=== PATIENT | female | born 2000 | race African-American/Black ===

== ENCOUNTER 2021-11-22 17:22 | Emergency (ER) | payer BC, SELFPAY ==
--- NOTE | ~2021-11-22 | XR_ITS ---
EXAMINATION: XR chest 2V DATE: 11/22/2021 17:46 INDICATION: Chest pain TECHNIQUE: PA and lateral views of the chest are obtained. COMPARISON: None available FINDINGS: The lungs are free of acute opacities. No pleural effusion or pneumothorax. The cardiomedia stinal silhouette is normal. The visualized bones and soft tissues are unremarkable. IMPRESSION: 1. No acute cardiopulmonary abnormality. Reviewed, dictated and finalized at location B.
--- NOTE | ~2021-11-22 | CT_ITS ---
EXAMINATION: CT abdomen pelvis w con DATE: 11/22/2021 19:04 INDICATION: Elevated lipase TECHNIQUE: Computed tomography (CT) of the abdomen and pelvis was performed with 100 mL Omnipaque-350 intravenous contrast. Automated exposure control and iterative reconstruction technique were employe d. The dose-length product was 255.09 mGy-cm. COMPARISON: None FINDINGS: Patchy groundglass opacities in the medial right middle lobe which could be due to atelectasis or pne umonia. Heart size is normal. No pericardial or pleural effusion. 5 mm right hepatic lobe cyst. The g allbladder, spleen, pancreas, bilateral adrenal glands and kidneys are normal. Bowels including the a ppendix are normal. Bladder, retroverted uterus and bilateral adnexa are unremarkable. No free intrap eritoneal gas or fluid. No pathologically enlarged abdominal or pelvic lymphadenopathy. Bones are unr emarkable. IMPRESSION: 1. No acute intra-abdominal/pelvic process. No peripancreatic inflammatory stranding to suggest acute pancreatitis. 2. Patchy groundglass opacities in the right middle lobe which could be due to atelectasis or pneumon ia. Reviewed, dictated and finalized at location A. IMPRESSION: 1. No acute intra-abdominal/pelvic process. No peripancreatic inflammatory stra nding to suggest acute pancreatitis. 2. Patchy groundglass opacities in the right middle lobe which could be due to atelectasis or pneumonia.
--- NOTE | 2021-11-22 17:24 | ECG_ITS ---
Measurements Intervals [place] Rate: 99 P: [place]: 0 QRS: 79 QRSD: 90 T: -14 QT: 309 QTc: 398 Interpretive Statements SINUS RHYTHM WITH PACS NONSPECIFIC ST & T-WAVE ABNORMALITY NO PREVIOUS ECG AVAILABLE FOR COMPARISON Electronically Signed On 11-23-2021 12:41:13 CDT by Scot Silveira M.D.
[2021-11-22 17:25] VITALS: BP 143/90; PULSE 100; RESP 18; TEMP 36.9; O2SAT 100
[2021-11-22 17:36] VITALS: PULSE 103
[2021-11-22] MEDS: KETOROLAC (*BKC) 60 MG/2 ML VIAL IM (17:57)
[2021-11-22 18:01] VITALS: BP 129/94
[2021-11-22 18:03] LABS: Troponin I < 0.012 ng/mL (0.000-0.034)
--- NOTE | 2021-11-22 18:09 | ED.CHESTPAIN ---
HPI - Chest Pain General Chief Complaint: Chest Pain Stated Complaint: SHARP CHEST PAIN Time Seen by Provider: 11/22/21 17:27 History of Present Illness HPI narrative: 21-year-old female presents the emergency room for evaluation of chest pain that has been present since yesterday. Patient states she is recently had a nonproductive cough. Describes pain as a sharp and burning sensation that is worse after inspiration. Denies any shortness of breath difficulty breathing, palpitations or edema. Denies radiating pain. Denies injury or trauma. Denies fever Related Data Allergies Allergy/AdvReac Type Severity Reaction Status Date / Time No Known Allergies Allergy Verified 11/22/21 17:27 Review of Systems Review of Systems: CONSTITUTIONAL: Denies fever, chills, or sweats. EYES: Denies visual changes, redness, or discharge. ENT: Denies rhinorrhea, congestion, sore throat, or otalgia. CARDIOVASCULAR: Reports chest pain, denies palpitations and edema. RESPIRATORY: Denies cough or dyspnea. GASTROINTESTINAL: Denies abdominal pain, nausea, vomiting, or diarrhea. GENITOURINARY: Denies dysuria or hematuria. SKIN: Denies rash or itching. MUSCULOSKELETAL: Denies back pain, joint pain, or myalgia. NEUROLOGIC: Denies headache, numbness, dizziness, or weakness. PSYCHIATRIC: Denies anxiety or depression. Exam Narrative: GENERAL: Well-appearing, well-nourished, no physical limitations, and in no acute distress. HEAD: Normocephalic, atraumatic. EYES: Conjunctivae normal, PERRLA and EOMI. NECK: Supple. No carotid bruits or JVD CHEST: Clear to auscultation. No respiratory distress. No wheezes rales or rhonchi. No tenderness. HEART: Regular rate and rhythm. No murmur heard. Normal peripheral pulses. ABDOMEN: Soft, nontender, nondistended, normal active bowel sounds. EXTREMITIES: Normal range of motion. No edema. No clubbing or cyanosis SKIN: Warm, dry, no rash. No noted wounds NEURO: No focal deficits. Alert and oriented x3. MAEW. CN's II-XI intact bilaterally, normal gait PSYCH: Cooperative. Normal mood and affect. Course Vital Signs Vital signs: Vital Signs Temperature 36.9 C 11/22/21 17:25 Pulse Rate 100 11/22/21 17:25 Respiratory Rate 18 08/25/22 17:25 Blood Pressure 143/90 H 11/22/21 17:25 Pulse Oximetry 100 11/22/21 17:25 Temperature 36.9 C 11/22/21 17:25 Pulse Rate 103 H 11/22/21 17:36 Respiratory Rate 18 11/22/21 17:25 Blood Pressure 143/90 H 11/22/21 17:25 Pulse Oximetry 100 11/22/21 17:25 MDM - Chest Pain Lab Data Result diagrams: 11/22/21 18:46 11/22/21 18:58 Labs: Lab Results 11/22/21 11/22/21 11/22/21 Range/Units 17:35 17:36 17:36 WBC (4.5-10.0) K/mm3 RBC (4.2-5.4) M/mm3 Hgb (12.0-15.0) g/dL Hct (37.0-47.0) % MCV (80-100) fl MCH (26-34) pg MCHC (32-36) g/dl RDW (11.5-14.5) % Plt Count (150-375) k/mm3 MPV (7.4-10.4) fl Immature Gran % (Auto) (0-0.5) % Neut % (Auto) (45.5-73.1) % Lymph % (Auto) (18.3-44.2) % [place] % (Auto) (2.6-8.5) % Eos % (Auto) (0-4.4) % Baso % (Auto) (0.2-1.2) % Lymph # (Auto) (0.9-3.2) K/mm3 [place] # (Auto) (0.1-0.6) K/mm3 Eos # (Auto) (0-0.3) K/mm3 Baso # (Auto) (0.0-0.1) K/mm3 Abs Immat Gran (auto) (0.00-0.031) K/mm3 Absolute Neuts (auto) (1.3-6.7) K/mm3 Absolute Nucleated RBC (0.0-0.012) K/mm3 Nucleated RBC % (0.0-0.2) % Sodium 137 (137-145) mmol/L Potassium 4.1 (3.4-5.0) mmol/L Chloride 101 (98-107) mmol/L Carbon Dioxide 24 (22-30) mmol/L Anion Gap 12 (8-16) mmol/L BUN 9 (7-17) mg/dL Creatinine 0.80 (0.7-1.0) mg/dL Estim Creat Clear Calc 87 ml/min Estimated GFR > 60 (59 - ) Glucose 92 (65-110) mg/dL Calcium 9.3 (8.4-10.2) mg/dL Total Bilirubin 0.5 (0.2-1.3) mg/dL AST 31 (14-36) U/L ALT 16 (6-35) U/L Alkaline Phosphatase 67
[2021-11-22 18:31] LABS: Lipase 579 U/L (23-300)
[2021-11-22] MEDS: SODIUM CHLORIDE 0.9% IV 1,000 ML 999 ML IV CONT (18:45)
[2021-11-22 18:53] LABS: Appearance Urine Clear (Clear); Bilirubin Urine 1+ (Negative); Blood Urine 2+ (Negative); Color Urine Yellow (Yellow); Glucose Urine UA Negative (Negative); Ketones Urine 2+ mg/dL (Negative); Leukocyte Esterase Ur Negative LEU/UL (Negative); Nitrate Urine Negative (Negative); Protein Urine Negative (Negative); Specific Grav Ur 1.025 (1.001-1.035); Urobilinogen Urine 0.2 mg/dL (<2.0); pH Urine 5.5 (5.0-9.0)
[2021-11-22 18:54] LABS: Basophils Absolute Auto 0.1 K/mm3 (0.0-0.1); Basophils Percent Auto 0.6 % (0.2-1.2); Eosinophils Absolute Auto 0.7 K/mm3 (0-0.3); Eosinophils Percent Auto 4.4 % (0-4.4); Hematocrit 42.1 % (37.0-47.0); Hemoglobin 14.6 g/dL (12.0-15.0); Immature Granulocyte Absolute 0.06 K/mm3 (0.00-0.031); Immature Granulocyte Percent A 0.4 % (0-0.5); Lymphocytes Percent Auto 19.6 % (18.3-44.2); Mean Corpuscular HGB Conc 34.7 g/dl (32-36); Mean Corpuscular Hemoglobin 32.3 pg (26-34); Mean Corpuscular Volume 93.1 fl (80-100); Mean Platelet Volume 8.6 fl (7.4-10.4); Monocytes Absolute Auto 1.1 K/mm3 (0.1-0.6); Neutrophils Absolute Auto 10.8 K/mm3 (1.3-6.7); Platelet Count Result 378 k/mm3 (150-375); Red Blood Count 4.52 M/mm3 (4.2-5.4); Red Cell Distribution Width 11.8 % (11.5-14.5); White Blood Count 15.8 K/mm3 (4.5-10.0)
[2021-11-22 18:55] LABS: Add Urine Microscopic? NO; Bacteria Urine Trace /hpf; Mucus Urine Few /lpf; Squamous Epithelial Cell Urine Moderate /hpf (Few)
[2021-11-22 19:00] LABS: Estimated CRCL calculation 87 ml/min; Estimated Glomerular Filt Rate > 60
[2021-11-22 19:06] VITALS: O2SAT 98
[2021-11-22 19:14] LABS: Alanine Aminotransferase 16 U/L (6-35); Alkaline Phosphatase 67 U/L (38-126); Anion Gap 12 mmol/L (8-16); Aspartate Amino Transferase 31 U/L (14-36); Bilirubin,Total 0.5 mg/dL (0.2-1.3); Blood Urea Nitrogen 9 mg/dL (7-17); Calcium 9.3 mg/dL (8.4-10.2); Carbon Dioxide 24 mmol/L (22-30); Chloride 101 mmol/L (98-107); Estimated CRCL calculation 87 ml/min; Estimated Glomerular Filt Rate > 60; Glucose 92 mg/dL (65-110); Potassium 4.1 mmol/L (3.4-5.0); Sodium 137 mmol/L (137-145)
[2021-11-22 19:15] VITALS: BP 132/86; PULSE 98; RESP 14; O2SAT 100
[2021-11-22 19:20] LABS: SARS-CoV-2 RNA PCR Negative
== END 2021-11-22 19:54 | disposition home or self-care (01) ==
PROVIDERS: Emergency Provider Nurse Practitioner Family
DX: J18.9 Pneumonia, unspecified organism (principal); R09.1 Pleurisy; R74.8 Abnormal levels of other serum enzymes; Z20.822 Contact with and (suspected) exposure to COVID-19; R94.31 Abnormal electrocardiogram [ECG] [EKG]
CPT/HCPCS: 36415; 71046; 74177; 80053; 81003; 81025; 83690; 84484; 85025; 93005; 96360; 96372; 99284; C9803; J1885; J7030; Q9967; U0003; U0005

== ENCOUNTER 2021-12-16 09:30 | Emergency (ER) | payer BC, SELFPAY ==
--- NOTE | ~2021-12-16 | XR_ITS ---
EXAMINATION: XR chest 2V DATE: 12/16/2021 10:12 INDICATION: Left chest pain. Cough. TECHNIQUE: Frontal and lateral views of the chest were obtained. COMPARISON: Chest 2 views 11/22/2021, CT abdomen and pelvis 11/22/2021 FINDINGS: The chest demonstrates clear lungs without pneumonia, pleural effusion, or pneumothorax. Th e heart size is normal. IMPRESSION: 1. No acute cardiopulmonary disease. Reviewed, dictated and finalized at location A.
--- NOTE | 2021-12-16 09:34 | ECG_ITS ---
Measurements Intervals [place] Rate: 115 P: [place]: 0 QRS: 98 QRSD: 110 T: -42 QT: 330 QTc: 458 Interpretive Statements SINUS TACHYCARDIA WITH SINUS ARRHYTHMIA WITH SHORT WI INTERVAL RIGHT AXIS DEVIATION MINIMAL Q WAVES- INFERIOR LEADS BORDERLINE ST-T WAVE ABNORMALITY- INFERIOR LEADS ABNORMAL ECG COMPARED TO ECG 11/22/2021 17:35:55 HEART RATE HAS INCREASED Electronically Signed On 12-16-2021 21:36:23 CDT by Lucas Mahoney D.O.
[2021-12-16 09:37] VITALS: BP 152/95; PULSE 125; RESP 28; TEMP 36.5; O2SAT 97
--- NOTE | 2021-12-16 09:48 | ED.CHESTPAIN ---
HPI - Chest Pain General Chief Complaint: Chest Pain <CAMELIA Abraham Last Filed: 12/16/21 18:14> Stated Complaint: chest pain, sob <CAMELIA Abraham Last Filed: 12/16/21 18:14> Time Seen by Provider: 12/16/21 09:37 <CAMELIA Abraham Last Filed: 12/16/21 18:14> Source: patient and old records reviewed <CAMELIA Abraham Last Filed: 12/16/21 18:14> Mode of arrival: ambulatory <CAMELIA Abraham Last Filed: 12/16/21 18:14> Limitations: no limitations <CAMELIA Abraham Last Filed: 12/16/21 18:14> History of Present Illness HPI narrative: Patient is a 21-year-old female who presents the ED with report of chest pain and difficulty breathing. Per patient's records, she was seen in the ED on 11/22 for cough and chest pain and diagnosed with R sided PNA at that time. She was started on Doxycycline and has since finished the antibiotic course. Over the last 3 days, she reports having increased difficulty breathing, worse with any type of exertion, constant midsternal chest pain, dry cough, and wheezing. She denies history of asthma or previous breathing issues prior to her pneumonia Dx. She has had some diarrhea since taking the antibiotics, but denies fever, nausea, vomiting, abdominal pain. <CAMELIA Abraham Last Filed: 12/16/21 18:14> Related Data Allergies/Adverse Reactions: Allergies Allergy/AdvReac Type Severity Reaction Status Date / Time No Known Allergies Allergy Verified 12/16/21 09:42 <CAMELIA Abraham Last Filed: 12/16/21 18:14> Review of Systems Review of Systems: CONSTITUTIONAL: Denies fever, chills, or sweats. ENT: Denies rhinorrhea, congestion, sore throat. CARDIOVASCULAR: Reports midsternal chest pain. Denies palpitations or edema. RESPIRATORY: Reports dry cough and dyspnea. GASTROINTESTINAL: Reports diarrhea. Denies abdominal pain, nausea, vomiting. GENITOURINARY: Denies dysuria or hematuria. <Josefa Richmond PA-C - Last Filed: 12/16/21 18:14> All systems reviewed & are unremarkable except as noted in HPI and below <Josefa Richmond PA-C - Last Filed: 12/16/21 18:14> PMFSH Past Medical History Medical History: Medical History (Updated 12/16/21 @ 12:29 by Josefa Richmond PA-C) History of pneumonia <Josefa Richmond PA-C - Last Filed: 12/16/21 18:14> Surgical History Surgical History: Surgical History (Updated 12/16/21 @ 10:03 by Josefa Richmond PA-C) History of ankle surgery History of tonsillectomy <Josefa Richomnd PA-C - Last Filed: 12/16/21 18:14> Social History Social History: Social History (Updated 12/16/21 @ 10:03 by Josefa Richmond PA-C) Smoking status: Current some day smoker <Josefa Richmond PA-C - Last Filed: 12/16/21 18:14> Exam Narrative: GENERAL: Well appearing, well-nourished, non-toxic, in no acute distress. HEAD: Normocephalic, atraumatic. NECK: Supple. No adenopathy, no masses. RESPIRATORY: Airway patent, respirations mildly tachypneic. Coarse breath sounds and bilateral lower lobes, right greater than left. Occasional expiratory wheezing. CARDIOVASCULAR: Tachycardia with regular rhythm without murmurs, rubs, or gallops. Peripheral pulses 2+ and equal bilaterally. ABDOMINAL: Soft, nontender, nondistended, no hepatosplenomegaly. Normoactive BS. MUSCULOSKELETAL: Moves all extremities. Strength/ROM intact without gross deformities or TTP. No edema. No calf tenderness. SKIN: Warm, dry, normal color. No rashes. NEURO: A&O X3. Speech clear. Cranial nerves II-XII grossly intact. Steady gait. No ataxic movements. PSYCHIATRIC: Appropriate mood and affect. Normal interaction. <Josefa Richmond PA-C - Last Filed: 12/16/21 18:14> Course Vital Signs Vital signs: Vital Signs Temperature 97.7 F 12/16/21 09:37 Pulse Rate 125 H 12/16/21 09:37 Respiratory Rate 28 H 09
[2021-12-16 10:01] LABS: Basophils Absolute Auto 0.1 K/mm3 (0.0-0.1); Eosinophils Absolute Auto 0.7 K/mm3 (0-0.3); Eosinophils Percent Auto 8.4 % (0-4.4); Hematocrit 39.7 % (37.0-47.0); Immature Granulocyte Absolute 0.01 K/mm3 (0.00-0.031); Immature Granulocyte Percent A 0.1 % (0-0.5); Lymphocytes Absolute Auto 2.84 K/mm3 (0.9-3.2); Lymphocytes Percent Auto 35.5 % (18.3-44.2); Mean Corpuscular HGB Conc 35.3 g/dl (32-36); Mean Corpuscular Volume 90.6 fl (80-100); Mean Platelet Volume 8.6 fl (7.4-10.4); Monocytes Absolute Auto 0.9 K/mm3 (0.1-0.6); Monocytes Percent Auto 10.9 % (2.6-8.5); Neutrophils Absolute Auto 3.5 K/mm3 (1.3-6.7); Neutrophils Percent Auto 44.1 % (45.5-73.1); Platelet Count Result 388 k/mm3 (150-375); Red Blood Count 4.38 M/mm3 (4.2-5.4); Red Cell Distribution Width 11.7 % (11.5-14.5)
[2021-12-16 10:12] VITALS: PULSE 124
[2021-12-16 10:14] LABS: Alanine Aminotransferase 21 U/L (6-35); Alkaline Phosphatase 65 U/L (38-126); Anion Gap 14 mmol/L (8-16); Aspartate Amino Transferase 37 U/L (14-36); Bilirubin,Total 0.8 mg/dL (0.2-1.3); Blood Urea Nitrogen 6 mg/dL (7-17); Calcium 9.6 mg/dL (8.4-10.2); Carbon Dioxide 23 mmol/L (22-30); Chloride 101 mmol/L (98-107); Estimated CRCL calculation 86 ml/min; Estimated Glomerular Filt Rate > 60; Glucose 107 mg/dL (65-110); Lipase 42 U/L (23-300); Potassium 4.2 mmol/L (3.4-5.0); Sodium 138 mmol/L (137-145)
[2021-12-16 10:26] LABS: INR 1.1; Prothrombin Time 13.8 Seconds (11.1-14.7); Troponin I < 0.012 ng/mL (0.000-0.034)
[2021-12-16 10:30] LABS: Partial Thromboplastin Time 33.5 SECONDS (22.3-36.8)
[2021-12-16] MEDS: methylPREDNISolone SOD SUCC 125 MG VIAL IV PUSH (10:30)
[2021-12-16 11:01] VITALS: BP 121/103; PULSE 106; RESP 22; O2SAT 100
[2021-12-16 12:01] VITALS: BP 141/105; PULSE 116; RESP 20; O2SAT 99
[2021-12-16 12:40] VITALS: BP 135/87; PULSE 118; RESP 21; O2SAT 100
[2021-12-16 13:02] LABS: Troponin I < 0.012 ng/mL (0.000-0.034)
== END 2021-12-16 12:45 | disposition home or self-care (01) ==
PROVIDERS: Emergency Provider General Practice
DX: J40 Bronchitis, not specified as acute or chronic (principal); R06.2 Wheezing; Z87.01 Personal history of pneumonia (recurrent); F17.200 Nicotine dependence, unspecified, uncomplicated; R00.0 Tachycardia, unspecified; R94.31 Abnormal electrocardiogram [ECG] [EKG]
CPT/HCPCS: 36415; 71046; 80053; 83690; 84484; 85025; 85380; 85610; 85730; 93005; 94640; 96374; 99284; J2930